=== PATIENT | female | born 1980 | race Two or more races ===

== ENCOUNTER 2024-02-24 11:48 | Emergency (ER) | payer MEDICAID, OTHER ==
[~2024-02-24] VITALS: Ht 170.2 cm; Wt 84.0 kg
[2024-02-24 12:37] VITALS: BP 111/83; PULSE 85; RESP 17; O2SAT 99
[2024-02-24] MEDS: KETOROLAC TROMETH 60MG/2ML VIAL IM ONE (12:37)
[2024-02-24] MEDS ORDERED: METH-1182 PO (13:29)
[2024-02-24] MEDS ORDERED: IBUP-1456 PO (13:29)
== END 2024-02-24 13:39 | disposition home or self-care (01) ==
LOC: EDBD 11:48 → ER 11:48
DX: S39.012A Strain of muscle, fascia and tendon of lower back, initial encounter (principal); Z79.1 Long term (current) use of non-steroidal anti-inflammatories (NSAID); Z79.899 Other long term (current) drug therapy; X58.XXXA Exposure to other specified factors, initial encounter; Y93.89 Activity, other specified; Y92.89 Other specified places as the place of occurrence of the external cause; Y99.8 Other external cause status
CPT/HCPCS: 72100; 96372; 99283; J1885